=== PATIENT | female | born 1970 | race American Indian/Alaskan Native ===

== ENCOUNTER 2019-05-17 11:43 | Day surgery (SDC) | payer OTHER ==
[2019-05-17] MEDS ORDERED: VANCOMYCIN/NS 1 GM/250 ML 1 GM/250 ML BAG IV NR (12:22)
[2019-05-17] MEDS ORDERED: MIDAZOLAM 2 MG/2 ML INJ IV ONE (12:56)
[2019-05-17] MEDS ORDERED: fentaNYL 100 MCG/2 ML INJ IV ONE (12:56)
--- NOTE | 2019-05-17 12:57 | Anesthesia Consultation ---
Anesthesia Consult and Med Hx Date of service: 05/17/19 - Airway Anesthetic Teeth Evaluation: Good ROM Head & Neck: Adequate Mental/Hyoid Distance: Adequate Mallampati Class: Class II Intubation Access Assessment: Good - Pulmonary Exam CTA: Yes - Cardiac Exam Cardiac Exam: RRR - Pre-Operative Health Status ASA Pre-Surgery Classification: ASA2 Proposed Anesthetic Plan: General (Migraines, LBP , neuropathy) - Pulmonary Hx Smoking: No Hx Asthma: Yes (NO MEDS) Hx Sleep Apnea: No (GABBY PRE SCREEN LOW RISK.) - Cardiovascular System Hx Hypertension: No - Central Nervous System Hx Back Pain: Yes (WITH PAIN/WEAKNESS/NUMBNESS TO LEFT LEG) - Other Systems Hx Cancer: No
[2019-05-17] MEDS ORDERED: LACTATED RINGERS 1,000 ML IV SCH ×2 (13:00→14:00)
--- NOTE | 2019-05-17 13:00 | Anesthesia Day of Surgery ---
Anesthesia Day of Surgery - Day of Surgery Patient Examined: Yes Patient H&P Reviewed: Yes Patient is NPO: Yes
[2019-05-17] MEDS ORDERED: HYDROmorphone 1 MG/1 ML INJ IV PRN (13:01)
[2019-05-17] MEDS ORDERED: methylPREDNISolone ACETATE 40 MG/1 ML INJ ONE (13:26)
[2019-05-17] MEDS ORDERED: BUPIVACAINE-EPINEPHRINE/PF 0.5%-1:200,000 (30 ML) VIAL INFILTRATI ONE (13:26)
[2019-05-17] MEDS ORDERED: PROPOFOL 200 MG/20 ML VIAL IV ONE (14:16)
[2019-05-17] MEDS ORDERED: HYDROmorphone 1 MG/1 ML INJ ONE (14:16)
[2019-05-17] MEDS ORDERED: LIDOCAINE MPF (2%) 20 MG/1 ML VIAL 5 ML ONE (14:17)
--- NOTE | 2019-05-17 14:28 | Procedure Note ---
Date of procedure: 05/17/19 Pre-op diagnosis: left knee pain Post-op diagnosis: same Procedure: Left Geniculate Nerve Block under C-arm fluroscopy procedure The patient taken to the OR suite where he was place on the table supine with padded triangular pad placed along the potileal fossa. The left knee prepped and draped in usual sterile fashion. 22-gauge spinal needle used to locate areas for injection, the medial and lateral supracondylar ridges as well as the medial border of the proximal tibia. These areas were anesthized using lidocaine 1% followed by placement of spinal needle near the medial, and lateral geniculate nerves. A mixture of marcaine and lidocaine injected into the deeper structures. There were no complications noted and he tolerated well. Anesthesia: local Surgeon: MASON SHAFER Estimated blood loss: minimal Pathology: none Condition: stable Disposition: observation
--- NOTE | 2019-05-17 14:29 | Procedure Note ---
Date of procedure: 05/17/19 Pre-op diagnosis: internal derangement left knee Post-op diagnosis: other (medial meniscus tear and grade 3 chondromalacia medial compartment) Procedure: Arthroscopy left knee partial medial meniscectomy and abrasion chondroplasty medial compartment and medial femoral condyle Procedure The patient was brought to the OR after receiving a femoral nerve block for postop pain management she was then placed onto the OR table supine. Following induction with MAC anesthesia the patient's left lower extremity was prepped and draped in the usual sterile manner. A timeout procedure was done to identify the patient and the correct operative site. The leg was then exsanguinated followed by inflation of the pneumatic tourniquet to 300 mmHg. Routine arthroscopic portals were made following introduction of the arthroscope and insufflation of the knee joint with saline solution examination revealed these findings #1 she was noted to have a radial flap tear noted in the posterior horn of the medial meniscus as well as some other fraying within the lateral meniscus also she also had a grade 3 chondromalacia involving the medial femoral condyle articular surface as well as the corresponding tibial articular surface following this an arthroscopic shaver was brought in the medial meniscus was then debrided back to healthier appearing cartilage tissue the articular cartilage was also debrided a small basket forceps was brought in and some remaining portions of the medial meniscus was removed care was taken not to over debride this structure following this the arthroscope was placed into the intercondylar notch the anterior cruciate ligament was seen and appeared to be intact lateral compartment was explored the patient was noted to have a mild chondral defect seen in the lateral femoral condyle area again using the shaver portions of the articular cartilage was debrided back to healthier appearing cartilage tissue the lateral meniscus was seen and did not appear to have any tears noted following this the arthroscope was placed into the suprapatellar pouch. No loose bodies appreciated following this the knee joint was irrigated copiously the stab wounds were repaired using 3-0 nylon A Depo-Medrol lidocaine mixture was then injected into the right knee routine postop dressings were applied and the tourniquet was then deflated. The patient also had symptoms painful symptoms in the left knee and a Depo-Medrol lidocaine mixture was injected into this knee as well following this the patient was extubated and was taken to postanesthesia recovery in a stable condition Anesthesia: MAC Surgeon: MASON SHAFER Puppy Sitter: ALEJA GUPTA Estimated blood loss: minimal Pathology: none Condition: stable Disposition: PACU
[2019-05-17] MEDS ORDERED: SODIUM CHLORIDE 0.9% IRRIG SOLN 3000 ML IR ONE (15:19)
[2019-05-17] MEDS ORDERED: BUPIVACAINE/PF (0.5%) 5 MG/1 ML 30 ML VIAL INFILTRATI ONE ×2 (15:54→15:59)
[2019-05-17] MEDS ORDERED: ONDANSETRON 4 MG/2 ML INJ ONE (15:55)
[2019-05-17] MEDS ORDERED: KETOROLAC 30 MG/1 ML INJ ONE (15:55)
[2019-05-17] MEDS ORDERED: methylPREDNISolone ACETATE 80 MG/1 ML INJ INTRA-ARTI ONE (15:59)
[2019-05-17 17:16] VITALS: BP 122/72
--- NOTE | 2019-05-17 22:32 | Post Anesthesia Evaluation ---
- Post Anesthesia Evaluation Patient Participated: Yes Airway Patent: Yes Stable Respiratory Function: Yes Nausea/Vomiting: No Temp > 96.8F: Yes Pain Manageable: Yes Adequeate Hydration: Yes Anesthesia Complications: No Block Receding Appropriately: Not Applicable Patient on Ventilator: No
== END 2019-05-17 17:58 | disposition home or self-care (01) ==
LOC: OR 11:43
PROVIDERS: ATTEND Orthopaedic Surgery
DX: M23.8X2 Other internal derangements of left knee (principal); M94.262 Chondromalacia, left knee; J45.909 Unspecified asthma, uncomplicated; G43.909 Migraine, unspecified, not intractable, without status migrainosus; Z98.49 Cataract extraction status, unspecified eye; Z98.890 Other specified postprocedural states; Z88.0 Allergy status to penicillin; Z91.040 Latex allergy status; Z88.6 Allergy status to analgesic agent; Z79.899 Other long term (current) drug therapy; Z88.8 Allergy status to other drugs, medicaments and biological substances
CPT/HCPCS: 29881; 64447; 64450; 81025; A4217; J1030; J1040; J1170; J1885; J2250; J2405; J2704; J3010; J3370; J7120